=== PATIENT | female | born 1945 | race Caucasian/White ===

== ENCOUNTER → 2017-04-08 | Outpatient (CLI) | payer MEDICARE, OTHER | END | disposition home or self-care (01) | LOC: CFH 08:30 | PROVIDERS: ATTEND Internal Medicine | DX: Z12.31 Encounter for screening mammogram for malignant neoplasm of breast (principal); E83.110 Hereditary hemochromatosis; N28.1 Cyst of kidney, acquired; E78.5 Hyperlipidemia, unspecified | CPT/HCPCS: 76700; G0202 ==

== ENCOUNTER → 2017-07-23 | Outpatient (CLI) | payer MEDICARE, OTHER ==
[2017-07-23 11:18] LABS: BASOPHILS # (AUTO) 0.02 x10^3/uL (0-0.1); BASOPHILS % (AUTO) 1 % (0-1); EOSINOPHILS # (AUTO) 0.04 x10^3/uL (0-0.4); EOSINOPHILS % (AUTO) 1 % (1-7); LYMPHOCYTES # (AUTO) 1.42 x10^3/uL (1-3.4); LYMPHOCYTES % (AUTO) 31 % (22-44); MD NO; MEAN CORPUSCULAR HGB CONC 34.1 g/dL (32.4-35.8); MEAN CORPUSCULAR VOLUME 93.8 fL (80-100); MEAN PLATELET VOLUME 8.2 fL (7.4-10.4); MONOCYTES # (AUTO) 0.78 x10^3/uL (0.2-0.8); MONOCYTES % (AUTO) 17 % (2-9); NEUTROPHILS # (AUTO) 2.29 x10^3/uL (1.8-6.8); NEUTROPHILS % (AUTO) 50 % (42-75); PLATELET COUNT 222 x10^3/uL (130-400); RED BLOOD COUNT 4.69 x10^6/uL (3.82-5.3); RED CELL DISTRIBUTION WIDTH 13.3 % (9.6-15.2)
[2017-07-23 11:28] LABS: ALBUMIN 3.7 g/dL (3.4-5.0); ANION GAP 5 mmol/L (5-15); CALCIUM 8.8 mg/dL (8.5-10.1); CHLORIDE 108 mmol/L (98-107)
[2017-07-23 11:33] LABS: HCT (SEDRATE) 44.4 % (34.6-47.8)
[2017-07-23 11:36] LABS: ALANINE AMINOTRANSFERASE 78 U/L (12-78); ALKALINE PHOSPHATASE 151 U/L (45-117); BILIRUBIN,TOTAL 0.6 mg/dL (0.2-1.0); CREATININE 0.67 mg/dL (0.55-1.02); TOTAL PROTEIN 7.7 g/dL (6.4-8.2)
== END | disposition home or self-care (01) ==
LOC: LAB 10:33
PROVIDERS: ATTEND Physician Assistant
DX: Z13.220 Encounter for screening for lipoid disorders (principal); Z12.39 Encounter for other screening for malignant neoplasm of breast; Z12.11 Encounter for screening for malignant neoplasm of colon; Z01.419 Encounter for gynecological examination (general) (routine) without abnormal findings; M53.3 Sacrococcygeal disorders, not elsewhere classified; K21.9 Gastro-esophageal reflux disease without esophagitis; H92.01 Otalgia, right ear; E83.110 Hereditary hemochromatosis; E78.5 Hyperlipidemia, unspecified; R74.0 Nonspecific elevation of levels of transaminase and lactic acid dehydrogenase [LDH]; N28.89 Other specified disorders of kidney and ureter; N28.1 Cyst of kidney, acquired; Z78.0 Asymptomatic menopausal state
CPT/HCPCS: 36415; 80053; 85025; 85651; 86140

== ENCOUNTER → 2017-09-23 | Outpatient (CLI) | payer MEDICARE, OTHER ==
[~2017-09-23] MED LIST: OMNIPAQUE 350 MG/ML, 100ML BOTTLE ONE
== END ==
LOC: CFH 12:18
PROVIDERS: ATTEND Nurse Practitioner Family
DX: R10.13 Epigastric pain (principal); R11.0 Nausea
CPT/HCPCS: 74177; Q9967

== ENCOUNTER → 2017-12-25 | Outpatient (CLI) | payer MEDICARE, OTHER | END | disposition home or self-care (01) | LOC: CARD 08:51 | PROVIDERS: ATTEND Internal Medicine | DX: R07.9 Chest pain, unspecified (principal); R53.83 Other fatigue; E83.110 Hereditary hemochromatosis; E78.5 Hyperlipidemia, unspecified; R74.0 Nonspecific elevation of levels of transaminase and lactic acid dehydrogenase [LDH]; N28.89 Other specified disorders of kidney and ureter; N28.1 Cyst of kidney, acquired; M53.3 Sacrococcygeal disorders, not elsewhere classified; K21.9 Gastro-esophageal reflux disease without esophagitis | CPT/HCPCS: 93017 ==

== ENCOUNTER → 2018-04-21 | Outpatient (CLI) | payer MEDICARE, OTHER | END | disposition home or self-care (01) | LOC: CFH 09:50 | PROVIDERS: ATTEND Internal Medicine | DX: Z13.79 Encounter for other screening for genetic and chromosomal anomalies (principal); Z12.31 Encounter for screening mammogram for malignant neoplasm of breast; N28.1 Cyst of kidney, acquired | CPT/HCPCS: 76700; 77067 ==

== ENCOUNTER → 2018-10-27 | Outpatient (CLI) | payer MEDICARE, OTHER | END | disposition home or self-care (01) | LOC: CFH 14:08 | PROVIDERS: ATTEND Internal Medicine | DX: M51.34 Other intervertebral disc degeneration, thoracic region (principal); M50.30 Other cervical disc degeneration, unspecified cervical region; M43.13 Spondylolisthesis, cervicothoracic region; M47.812 Spondylosis without myelopathy or radiculopathy, cervical region; M41.84 Other forms of scoliosis, thoracic region; E83.110 Hereditary hemochromatosis; E78.5 Hyperlipidemia, unspecified; K21.9 Gastro-esophageal reflux disease without esophagitis | CPT/HCPCS: 72050; 72072 ==

== ENCOUNTER 2019-05-11 09:13 | Outpatient (CLI) | payer MEDICARE, OTHER | END 2019-05-11 23:59 | disposition home or self-care (01) | LOC: CFH 09:13 | PROVIDERS: ATTEND Internal Medicine | DX: Z12.31 Encounter for screening mammogram for malignant neoplasm of breast (principal); K21.9 Gastro-esophageal reflux disease without esophagitis; N28.1 Cyst of kidney, acquired | CPT/HCPCS: 76700; 77067 ==

== ENCOUNTER 2019-09-03 08:16 | Outpatient (CLI) | payer MEDICARE, OTHER | END 2019-09-03 23:59 | disposition home or self-care (01) | LOC: RAD 08:16 | PROVIDERS: ATTEND Internal Medicine | DX: K21.9 Gastro-esophageal reflux disease without esophagitis (principal); M53.3 Sacrococcygeal disorders, not elsewhere classified; N28.89 Other specified disorders of kidney and ureter; N28.1 Cyst of kidney, acquired; E78.5 Hyperlipidemia, unspecified | CPT/HCPCS: 76700 ==

== ENCOUNTER → 2019-09-15 | Outpatient (CLI) | payer MEDICARE, OTHER ==
[~2019-09-15] MED LIST changes: -OMNIPAQUE 350 MG/ML, 100ML BOTTLE ONE; +SINCALIDE (KINEVAC) 5 MCG ONE
== END | disposition home or self-care (01) ==
LOC: PETCFH 08:13
PROVIDERS: ATTEND Internal Medicine
DX: Z12.11 Encounter for screening for malignant neoplasm of colon (principal); Z13.220 Encounter for screening for lipoid disorders; Z01.419 Encounter for gynecological examination (general) (routine) without abnormal findings; R10.9 Unspecified abdominal pain; E83.110 Hereditary hemochromatosis; E78.5 Hyperlipidemia, unspecified; R74.0 Nonspecific elevation of levels of transaminase and lactic acid dehydrogenase [LDH]; N28.89 Other specified disorders of kidney and ureter; N28.1 Cyst of kidney, acquired; M53.3 Sacrococcygeal disorders, not elsewhere classified; K21.9 Gastro-esophageal reflux disease without esophagitis; M54.2 Cervicalgia; Z78.0 Asymptomatic menopausal state
CPT/HCPCS: 78227; A9510; J2805

== ENCOUNTER → 2020-04-13 | Outpatient (CLI) | payer MEDICARE, OTHER ==
[~2020-04-13] MED LIST changes: +OMNIPAQUE 350 MG/ML, 100ML BOTTLE ONE; -SINCALIDE (KINEVAC) 5 MCG ONE
== END | disposition home or self-care (01) ==
LOC: CFH 09:09
PROVIDERS: ATTEND Nurse Practitioner Primary Care
DX: G31.89 Other specified degenerative diseases of nervous system (principal)
CPT/HCPCS: 70470; 82565; Q9967

== ENCOUNTER → 2020-04-27 | Outpatient (CLI) | payer MEDICARE, OTHER | END | disposition home or self-care (01) | LOC: RAD 12:56 | PROVIDERS: ATTEND Nurse Practitioner Primary Care | DX: M26.641 Arthritis of right temporomandibular joint (principal); E55.9 Vitamin D deficiency, unspecified; R51.9 Headache, unspecified | CPT/HCPCS: 70336 ==

== ENCOUNTER → 2020-05-16 | Outpatient (CLI) | payer MEDICARE, OTHER | END | disposition home or self-care (01) | LOC: CFH 10:14 | PROVIDERS: ATTEND Internal Medicine | DX: Z12.31 Encounter for screening mammogram for malignant neoplasm of breast (principal) | CPT/HCPCS: 77067 ==